=== PATIENT | female | born 1985 | race Caucasian/White ===

== ENCOUNTER → 2017-04-20 13:30 | Outpatient (CLI) | payer OTHER, SELFPAY ==
--- NOTE | 2017-04-20 08:36 | HPBI_ITS ---
MAMMOGRAPHY - BILATERAL SCREENING REASON FOR EXAM: Female, 32 years old. Routine annual screening examination. PERTINENT HISTORY: Grandmother with breast cancer. Aunt with breast cancer. TECHNIQUE: Digital bilateral breast fantasma (3D mammographic acquisition) in the CC and MLO projections. 2-D mediolateral oblique (MLO) and craniocaudad (CC) views of both breasts were obtained. CAD: Full Field Digital Mammography with Computer Added Detection was performed. COMPARISON: Comparison is made with prior outside examination dated February 24, 2016 and prior MRI examination dated August 05, 2016. FINDINGS: Breast Composition: The breasts are heterogeneously dense, which may obscure small masses. There are no dominant masses or suspicious calcifications. No other significant abnormalities are identified. There has been no significant change since the prior study. HPBI/SCREENING MAMM (CAD), BILAT IMPRESSION: Stable bilateral screening mammogram. Yearly follow-up mammogram recommended. (A) ASSESSMENT CATEGORY: BIRADS Category 1: Negative. A letter regarding these results will be sent to the patient by the facility within 30 days. Approximately 10% of breast cancers are not detected by mammography. A normal mammogram should not delay biopsy of a clinically suspicious abnormality. [id number] Electronically Signed: Jase Gleason MD at 10:29 EST Tel [phone], Service support ,
== END ==
PROVIDERS: Family Provider Family Medicine; PCP Family Medicine; Visit Provider Obstetrics & Gynecology
DX: Z12.31 Encounter for screening mammogram for malignant neoplasm of breast (principal)
CPT/HCPCS: 77063; 77067

== ENCOUNTER → 2017-07-21 18:16 | Outpatient (CLI) | payer OTHER, SELFPAY ==
[2017-07-25 15:42] LABS: HPV Reflexed? NOT INDICATED
== END ==
PROVIDERS: Visit Provider Obstetrics & Gynecology
DX: Z12.4 Encounter for screening for malignant neoplasm of cervix (principal)
CPT/HCPCS: 88175; G0145

== ENCOUNTER → 2018-05-17 12:40 | Outpatient (CLI) | payer OTHER, SELFPAY ==
--- NOTE | 2018-05-17 13:11 | BI_ITS ---
MAMMOGRAPHY - BILATERAL SCREENING REASON FOR EXAM: Female, 33 years old. Routine annual screening examination. PERTINENT HISTORY: Grandmother with breast cancer. Aunt with breast cancer. TECHNIQUE: Digital bilateral breast fantasma (3D mammographic acquisition) in the CC and MLO projections. 2-D mediolateral oblique (MLO) and craniocaudad (CC) views of both breasts were obtained. CAD: Full Field Digital Mammography with Computer Added Detection was performed. COMPARISON: Comparison is made with prior study dated October 18, 2017. FINDINGS: Breast Composition: The breasts are heterogeneously dense, which may obscure small masses. There are no dominant masses or suspicious calcifications. No other significant abnormalities are identified. There has been no significant change since the prior study. BI/SCREENING MAMM (CAD), BILAT IMPRESSION: Stable bilateral screening mammogram. Yearly follow-up mammogram recommended. (A) ASSESSMENT CATEGORY: BIRADS Category 1: Negative. A letter regarding these results will be sent to the patient by the facility within 30 days. Approximately 10% of breast cancers are not detected by mammography. A normal mammogram should not delay biopsy of a clinically suspicious abnormality. [id number] Electronically Signed: Jase Gleason MD at 14:54 EST , Service support ,
== END ==
PROVIDERS: Family Provider Internal Medicine; PCP Internal Medicine; Referring Provider Obstetrics & Gynecology; Visit Provider Obstetrics & Gynecology
DX: Z12.31 Encounter for screening mammogram for malignant neoplasm of breast (principal)
CPT/HCPCS: 77063; 77067

== ENCOUNTER 2018-10-18 22:02 | Emergency (ER) | payer OTHER, SELFPAY ==
[2018-10-18 09:37] VITALS: BMI 23.4
[2018-10-18 22:02] VITALS: BP 147/90; PULSE 64; RESP 18; TEMP 36.7; O2SAT 100; BMI 23.6
[2018-10-18 22:27] LABS: Mucous, Urine 0 SEEN /hpf (<or=2+); Red Blood Cells-Urine 0 SEEN /hpf (0-5); White Blood Cells 0 SEEN /hpf (0-5)
[2018-10-18 22:31] LABS: Color, Urine Yellow (Yellow); Glucose, Dipstick Normal (Normal); Ketone-Dipstick 15 mg/dl (Negative); Leukocyte Esterase-Dipstick Negative /ul (Negative); Nitrite-Dipstick Negative (Negative); Occult Blood-Urine Negative /ul (Negative); Protein-Dipstick Negative (Negative); Urine Bilirubin Dipstick Negative (Negative); Urine Clarity Clear (Clear); Urine Urobilinogen Normal (Normal)
[2018-10-18 22:48] LABS: Absolute Lymphocyte Count 2.39 X10^3/uL (0.83-4.51); Absolute Neutrophil Count 2.7 X10^3/uL (2.0-7.7); Basophil# 0.05 X10^3/uL; Basophil% 0.8 % (0-1); Eosinophil# 0.05 X10^3/uL; Eosinophils% 0.8 % (0-5); Hematocrit 43.4 % (37-47); Lymphocyte # 2.39 X10^3/ul (4.0); Lymphocyte % 39.8 % (19-41); Mean Corp Hgb Conc 34.6 g/dL (32-36); Mean Corpuscular Hgb 30.7 pg (27.0-32.0); Mean Corpuscular Volume 88.9 fL (81-99); Mean Platelet Vol. 10.1 fl (6.2-12.0); Monocyte# 0.76 X10^3/uL; Monocyte% 12.7 % (0-10); NRBC Flagged by Analyzer 0 % (0-5); Neutrophil # 2.73 X10^3/uL (2.7-7.7); Neutrophil % 45.6 % (47-70); Platelet Count 191 K/mm3 (150-450); RBC Distribution Width CV 11.4 % (11.6-14.6); RBC Distribution Width SD 36.3 fl (35.1-43.9); Red Blood Count 4.88 M/mm3 (4.2-5.4)
[2018-10-18 22:52] LABS: Bacteria RARE /hpf (None Seen); Squamous Epithelial Cells - UA 0-5 SEEN /hpf (5-10)
[2018-10-18 22:59] LABS: Anion Gap 3 (5-15); BUN 10 mg/dL (7-18); BUN/Creat Ratio 11.3 RATIO (10-20); Calcium,Total 8.7 mg/dL (8.5-10.1); Chloride 105 mmol/L (98-107); Creatinine, Serum 0.88 mg/dL (0.55-1.02); EST Glomerular Filtration Rate 77 mL/min (>60); Est Glom Filt Rate - Afr Amer 93 mL/min (>60); Estimated Creatinine Clearance 67.33 ml/min; Glucose 165 mg/dL (74-106); Potassium 3.2 mmol/L (3.5-5.1); Sodium Level 137 mmol/L (136-145)
--- NOTE | 2018-10-18 23:03 | ED.DCSUM_ITS ---
- ER Visit Summary Date of Service: 10/18/18 Chief Complaint: Abdominal pain History of Present Illness: The patient is a 33 F who presents with abdominal pain. This began around noon about 11 hours before the time of my evaluation. She describes it as sharp and burning. Its diffuse although is worse in the upper abdomen. She also complains of nausea without vomiting. No diarrhea. She had a flulike illness 4 days ago. She had fever of 102 which is not returned. She also was complaining of muscle aches and joint aches although those symptoms have improved. She began to develop some nausea this morning and was seen at an urgent care. However she was not having any significant pain at that time. She has a history of prior C-sections but denies any other abdominal surgery. She denies medical history. Physical Examination: Afebrile blood pressure 147/90 vitals otherwise normal No distress Moist mucous membranes Heart regular rate and rhythm Lungs are clear Abdomen soft nondistended she has some diffuse abdominal tenderness which is greatest in the epigastrium no guarding no rebound Alert Test Results: Labs notable for potassium 3.2 and ketones of 15 in the urine. Hepatic function, lipase normal. negative. Emergency Department Course and Treatment: Patient was treated with Toradol Zofran and IV fluids. She reports really no change in symptoms. She was also given a GI cocktail. She is afebrile normal heart rate no leukocytosis or laboratory abnormalities. She is tender in the epigastrium but does not have a surgical abdomen. At this time I do not see an indication for imaging. I suspect this is related to gastritis. We will start her on Prilosec. She was instructed on specific signs and symptoms to monitor for and conditions which should prompt return here to the emergency department for reevaluation. Patient agreeable to this plan. All questions answered bedside. Patient discharged. Treatment Plan: [] Disposition: Discharge Impression: Abdominal pain This note was generated with [employer] dictation software. It may contain incorrect words, spelling, and punctuation that were not noted in review of the chart prior to signing ED Disposition - Plan for ED Patient: Referrals: Daly Webb MD [Primary Care Provider] -
[2018-10-18 23:09] LABS: Internal QC Validated? YES +Cl - CLEAR BKGD; Pregnancy, Serum, hCG Quali. NEGATIVE Negative
[2018-10-18] MEDS: Ketorolac 30 MG/ML Syringe IV (23:23)
[2018-10-18] MEDS: Ondansetron 4 MG/2 ML Vial IV (23:23)
[2018-10-18 23:31] LABS: Lipase 111 U/L (73-393)
[2018-10-18 23:32] LABS: AST(SGOT) 15 U/L (15-37); Alanine Aminotransfer ALT/SGPT 22 U/L (13-56); Albumin, Serum 3.7 g/dL (3.2-5.0); Alkaline Phosphatase 68 U/L (45-117); Bilirubin, Direct 0.07 mg/dL (0.00-0.30); Globulin 2.9 g/dL (2.2-4.2); Protein, Total 6.6 g/dL (6.4-8.2)
[2018-10-18] MEDS: 0.9% Normal Saline 1,000 ML 999 ML IV (23:32)
[2018-10-18 23:33] VITALS: BP 147/92; PULSE 59; RESP 16; O2SAT 100
[2018-10-19] MEDS: Mag Hydrox/Al Hydrox/Simeth 30 ML UDC PO (00:12)
--- NOTE | 2018-10-19 00:18 | ED.DEP ---
ED Disposition - Plan for ED Patient: Instructions: ABDOMINAL PAIN, Unknown Cause, (Female) Prescriptions: Omeprazole [Prilosec] 20 mg PO DAILY #30 cap Prescription Printed Referrals: Daly Webb MD [Primary Care Provider] -
[2018-10-19 00:35] VITALS: BP 140/86; PULSE 64; RESP 15; O2SAT 98
== END 2018-10-19 00:40 | disposition home or self-care (01) ==
PROVIDERS: Emergency Provider Emergency Medicine; Family Provider Internal Medicine; PCP Internal Medicine
DX: R10.84 Generalized abdominal pain (principal)
CPT/HCPCS: 80048; 80076; 81001; 83690; 84703; 85025; 96361; 96374; 96375; 99284; J7030; A4216; J2405

== ENCOUNTER 2018-10-19 23:48 | Emergency (ER) | payer OTHER, SELFPAY ==
[2018-10-19 13:24] VITALS: BMI 23.6
[2018-10-19 23:48] VITALS: BP 160/88; PULSE 63; RESP 16; TEMP 36.2; O2SAT 98; BMI 22.6
--- NOTE | 2018-10-19 23:58 | CT_ITS ---
STUDY: CT ABDOMEN AND PELVIS WITH CONTRAST REASON FOR EXAM: Female, 33 years old. Abdomen pain. RADIATION DOSAGE (If Supplied By Facility): CTDIvol = ( 8.44 ) mGy, DLP = ( 345.98 ) mGycm TECHNIQUE: Transaxial images were obtained from the dome of the diaphragm to the symphysis pubis without oral contrast. 75 IV/Oral Isovue 300 was administered. Sagittal and coronal images were reconstructed. Individualized dose optimization techniques were used for this CT. COMPARISON: None. FINDINGS: The visualized lung bases are unremarkable. The visualized portions of the heart are within normal limits. Normal liver. Normal gallbladder and extrahepatic biliary system. Normal spleen. Normal pancreas. Normal bilateral adrenal glands. Normal right kidney. Normal left kidney. Normal visualized stomach. Normal small intestine. Normal colon. The appendix is visualized and appears normal. Normal abdominal aorta. Normal inferior vena cava. Normal retroperitoneum. Normal urinary bladder. Normal visualized uterus and left ovary. The right ovary is not identified. There is small amount of free fluid in the pelvic cul-de-sac probably physiologic. Normal abdominal wall. Normal osseous structures. CT/Abdomen/Pelvis WITH Contrast IMPRESSION: Normal enhanced CT of the abdomen and pelvis. Electronically Signed: Alfred Loya, at 3:07 EDT Tel , Service support ,
--- NOTE | 2018-10-19 23:59 | ED.VIS.GEN ---
History of Present Illness Chief Complaint: Abd Pain Informant: Patient Onset: Yesterday Timing: Waxes and wanes Current Severity: Moderate Maximum Severity: Moderate Narrative: Patient was seen in the now clinic yesterday morning with nausea. She was seen in the emergency room last night after she had also developed diffuse abdominal pain, worse in the upper abdomen. Lab work was unremarkable. She was started on Prilosec. She was seen by her PCP today and also given sucralfate. Patient states that her pain was pretty good all day today, but returned at 10 PM this evening. She has not eaten anything since noon. She has had no fever. Past Medical History - Allergies and Home Meds Allergies/Adverse Reactions: Allergies chlorhexidine Allergy (Verified 10/19/18 23:48) Uri Primary Care Physician: Daly Webb MD [Primary Care Provider] - Prior records reviewed: Yes Past Medical History: - - Reviewed Surgical History: - - , tubal ligation Lives: With Family Smoking Status: Former smoker Review of Systems All systems negative except as indicated General: Denies: Chills, Fever Eyes: Denies: Visual changes - left, Visual changes - right Cardiovascular: Denies: Chest pain, Palpitations, Heart racing Respiratory: Denies: Dyspnea, Cough Gastrointestinal: Reports: Abdominal pain, Nausea. Denies: Vomiting, Diarrhea, Constipation Genitourinary: Denies: Dysuria, Hematuria Musculoskeletal: Denies: Back pain Skin: Denies: Rash Neurological: Denies: Headache, Weakness Endocrine: Denies: Polyuria, Polydipsia Allergy: Denies: Uticaria Physical Exam Vital Signs/Narrative: Vital Signs Temp Pulse Resp BP Pulse Ox 10/19/18 23:48 97.1 F L 63 16 160/88 H 98 Inital Vital Signs reviewed: Yes General: Well nourished, Well developed ENT: Moist mucous membranes Cardiovascular: Regular rate, Regular rhythm Respiratory: No distress, CTA bilaterally Abdomen: Soft, Tender - Mild diffuse tenderness palpation, worse in the epigastrium. No guarding or rebound., Hypoactive bowel sounds. Negative for: Guarding, Rebound tenderness Back: Nontender. Negative for: CVA tenderness Extremities: Nontender, No edema Skin: Normal color, No rash Neurological: Alert, Oriented x3 Psychological: Normal affect Diagnostic/Tx/Re-eval Impressions Abdomen/Pelvis CT 10/19/18 23:58 IMPRESSION: Normal enhanced CT of the abdomen and pelvis. Electronically Signed: Alfred Loya, at 3:07 EDT Tel , Service support , 10/19/18 23:58 Abdomen/Pelvis WITH Contrast [CT] Stat Laboratory Results 10/20/18 10/20/18 00:03 00:03 WBC 5.8 RBC 4.83 Hgb 14.6 Hct 42.4 MCV 87.8 MCH 30.2 MCHC 34.4 RDW Std Deviation 36.3 RDW Coeff of [place] 11.3 L Plt Count 194 MPV 10.3 Immature Gran % (Auto) 0.300 Neut % (Auto) 51.6 Lymph % (Auto) 34.9 [place] % (Auto) 11.4 H Eos % (Auto) 0.9 Baso % (Auto) 0.9 Absolute Neuts (auto) 3.0 Absolute Lymphs (auto) 2.03 Absolute Nucleated RBC 0.00 Nucleated RBC % 0 Sodium 135 L Potassium 3.6 Chloride 104 Carbon Dioxide 26.0 Anion Gap 5 BUN 6 L Creatinine 0.78 Estim Creat Clear Calc 75.96 Est GFR (MDRD) Af Amer 108 Est GFR (MDRD) Non-Af 90 BUN/Creatinine Ratio 7.7 L Glucose 120 H Calcium 8.5 Total Bilirubin 0.60 Direct Bilirubin 0.11 AST 17 ALT 27 Alkaline Phosphatase 57 Total Protein 6.8 Albumin 3.8 Globulin 3.0 Lipase 86 - Medical Decision Making Patient received morphine, Zofran, and IV fluids. This was her fourth visit to healthcare professional in 2 days. She expressed concern about not having imaging performed at this point. CT scan was obtained and is unremarkable. Patient has been resting comfortably since she was medicated on arrival. Patient's mother states she had another child that had some spasms in the lower esophagus and wonders if that may be causing some of the patient's pain. I will write her prescription for Bentyl that she can try. I also recommended frequent small snacks so that the acid did not build up in her stomach. ED Disposition - Plan for ED Patient: Disposition: Home or Assisted Living Diagnosis: Epigastric pain Instructions: EPIGASTRIC PAIN (Uncertain cause), GASTRITIS vs. ULCER Prescriptions: Dicyclomine HCl [Bentyl] 20 mg PO TIDAC PRN #20 capsule PRN Reason: Pain Referrals: Daly Webb MD [Primary Care Provider] -
[2018-10-20] MEDS: Ondansetron 4 MG/2 ML Vial IV (00:07)
[2018-10-20] MEDS: 0.9% Normal Saline 1,000 ML 150 ML IV (00:07)
[2018-10-20] MEDS: Morphine 4 MG/ML Syringe IV (00:08)
[2018-10-20 00:15] LABS: Absolute Lymphocyte Count 2.03 X10^3/uL (0.83-4.51); Basophil# 0.05 X10^3/uL; Basophil% 0.9 % (0-1); Eosinophil# 0.05 X10^3/uL; Eosinophils% 0.9 % (0-5); Hematocrit 42.4 % (37-47); Hemoglobin 14.6 g/dL (12.0-15.0); Lymphocyte # 2.03 X10^3/ul (4.0); Lymphocyte % 34.9 % (19-41); Mean Corp Hgb Conc 34.4 g/dL (32-36); Mean Corpuscular Hgb 30.2 pg (27.0-32.0); Mean Corpuscular Volume 87.8 fL (81-99); Mean Platelet Vol. 10.3 fl (6.2-12.0); Monocyte# 0.66 X10^3/uL; Monocyte% 11.4 % (0-10); NRBC Flagged by Analyzer 0 % (0-5); Neutrophil % 51.6 % (47-70); Platelet Count 194 K/mm3 (150-450); RBC Distribution Width CV 11.3 % (11.6-14.6); RBC Distribution Width SD 36.3 fl (35.1-43.9); Red Blood Count 4.83 M/mm3 (4.2-5.4); White Blood Count 5.8 K/mm3 (4.4-11.0)
[2018-10-20 00:27] LABS: AST(SGOT) 17 U/L (15-37); Alanine Aminotransfer ALT/SGPT 27 U/L (13-56); Albumin, Serum 3.8 g/dL (3.2-5.0); Alkaline Phosphatase 57 U/L (45-117); Anion Gap 5 (5-15); BUN 6 mg/dL (7-18); BUN/Creat Ratio 7.7 RATIO (10-20); Bilirubin, Direct 0.11 mg/dL (0.00-0.30); Calcium,Total 8.5 mg/dL (8.5-10.1); Chloride 104 mmol/L (98-107); Creatinine, Serum 0.78 mg/dL (0.55-1.02); EST Glomerular Filtration Rate 90 mL/min (>60); Est Glom Filt Rate - Afr Amer 108 mL/min (>60); Estimated Creatinine Clearance 75.96 ml/min; Glucose 120 mg/dL (74-106); Lipase 86 U/L (73-393); Potassium 3.6 mmol/L (3.5-5.1); Protein, Total 6.8 g/dL (6.4-8.2); Sodium Level 135 mmol/L (136-145)
[2018-10-20 03:23] VITALS: BP 135/92; PULSE 60; RESP 14; O2SAT 99
== END 2018-10-20 03:23 | disposition home or self-care (01) ==
PROVIDERS: Emergency Provider Emergency Medicine; Family Provider Internal Medicine; PCP Internal Medicine
DX: R10.13 Epigastric pain (principal); Z87.891 Personal history of nicotine dependence
CPT/HCPCS: 74177; 80048; 80076; 83690; 85025; 96361; 96374; 96375; 99283; J7030; Q9967; A4216; J2405

== ENCOUNTER → 2018-12-30 | Outpatient (CLI) | payer OTHER, SELFPAY ==
[2018-10-26 15:38] VITALS: BMI 22.6
[2019-01-03 16:06] LABS: HPV Reflexed? NOT INDICATED
== END | disposition home or self-care (01) ==
LOC: LABSPEC 13:23
PROVIDERS: Visit Provider Obstetrics & Gynecology
DX: Z12.4 Encounter for screening for malignant neoplasm of cervix (principal)
CPT/HCPCS: 88175; G0145

== ENCOUNTER → 2019-05-26 | Outpatient (CLI) | payer OTHER, SELFPAY ==
[2019-05-26 10:54] VITALS: BMI 22.6
[2019-05-26 13:07] LABS: Absolute Neutrophil Count 3.6 X10^3/uL (2.0-7.7); Basophil# 0.06 X10^3/uL; Eosinophil# 0.06 X10^3/uL; Hematocrit 47.6 % (37-47); Hemoglobin 15.7 g/dL (12.0-15.0); Lymphocyte % 32.5 % (19-41); Mean Corpuscular Hgb 28.8 pg (27.0-32.0); Mean Corpuscular Volume 87.3 fL (81-99); Mean Platelet Vol. 10.6 fl (6.2-12.0); Monocyte# 0.45 X10^3/uL; Monocyte% 7.3 % (0-10); NRBC Flagged by Analyzer 0 % (0-5); Neutrophil # 3.59 X10^3/uL (2.7-7.7); Neutrophil % 58.2 % (47-70); Platelet Count 228 K/mm3 (150-450); RBC Distribution Width CV 11.5 % (11.6-14.6); Red Blood Count 5.45 M/mm3 (4.2-5.4); White Blood Count 6.2 K/mm3 (4.4-11.0)
[2019-05-26 13:49] LABS: ALB/GLOB Ratio 1.2 RATIO (0.9-2.4); AST(SGOT) 19 U/L (15-37); Alanine Aminotransfer ALT/SGPT 29 U/L (13-56); Albumin, Serum 4.3 g/dL (3.2-5.0); Alkaline Phosphatase 77 U/L (45-117); Anion Gap 7 (5-15); BUN 17 mg/dL (7-18); BUN/Creat Ratio 20.9 RATIO (10-20); Calcium,Total 9.2 mg/dL (8.5-10.1); Chloride 105 mmol/L (98-107); Creatinine, Serum 0.82 mg/dL (0.55-1.02); EST Glomerular Filtration Rate 84 mL/min (>60); Est Glom Filt Rate - Afr Amer 102 mL/min (>60); Globulin 3.6 g/dL (2.2-4.2); Glucose 82 mg/dL (74-106); Potassium 4.5 mmol/L (3.5-5.1); Protein, Total 7.9 g/dL (6.4-8.2); Sodium Level 138 mmol/L (136-145); T4 Free Direct 1.22 ng/dL (0.76-1.46); Thyroid Stim Hormone (TSH) 2.08 uIU/mL (0.358-3.74)
[2019-05-30 11:18] LABS: Vitamin D,25 Hydroxy 24.7 ng/mL
== END | disposition home or self-care (01) ==
LOC: BIMLAB 11:23
PROVIDERS: PCP Internal Medicine; Referring Provider Internal Medicine; Visit Provider Internal Medicine
DX: E55.9 Vitamin D deficiency, unspecified (principal); R53.81 Other malaise; R53.83 Other fatigue; Z13.29 Encounter for screening for other suspected endocrine disorder
CPT/HCPCS: 36415; 80053; 82306; 84439; 84443; 85025

== ENCOUNTER → 2019-06-08 | Outpatient (CLI) | payer OTHER, SELFPAY ==
[2018-10-26 15:38] VITALS: BMI 22.6
[2019-05-26 10:54] VITALS: BMI 22.6
--- NOTE | 2019-06-08 13:00 | BI_ITS ---
MAMMOGRAPHY - BILATERAL SCREENING REASON FOR EXAM: Female, 34 years old. Routine annual screening examination. PERTINENT HISTORY: Grandmother with breast cancer. Aunt with breast cancer. TECHNIQUE: Digital bilateral breast mp (3D mammographic acquisition) in the CC and MLO projections. 2-D mediolateral oblique (MLO) and craniocaudad (CC) views of both breasts were obtained. CAD: Full Field Digital Mammography with Computer Added Detection was performed. COMPARISON: Comparison is made with prior examination of May 17, 2018 and April 20, 2017. FINDINGS: Breast Composition: The breasts are heterogeneously dense, which may obscure small masses. There are no dominant masses or suspicious calcifications. No other significant abnormalities are identified. There has been no significant change since the prior study. BI/SCREEN MAMM (CAD) W/MP BILAT IMPRESSION: Stable bilateral screening mammogram. Yearly follow-up mammogram recommended. (A) ASSESSMENT CATEGORY: BIRADS Category 1: Negative. A letter regarding these results will be sent to the patient by the facility within 30 days. Approximately 10% of breast cancers are not detected by mammography. A normal mammogram should not delay biopsy of a clinically suspicious abnormality. [id number] Electronically Signed: Jase Gleason, at 14:02 EST , Service support ,
== END | disposition home or self-care (01) ==
LOC: OPBI 13:48
PROVIDERS: PCP Internal Medicine; Referring Provider Obstetrics & Gynecology; Visit Provider Obstetrics & Gynecology
DX: Z12.31 Encounter for screening mammogram for malignant neoplasm of breast (principal)
CPT/HCPCS: 77063; 77067

== ENCOUNTER → 2019-06-09 | Outpatient (CLI) | payer OTHER, SELFPAY ==
[2019-05-26 10:54] VITALS: BMI 22.6
--- NOTE | 2019-06-09 13:25 | ECHOD_ITS ---
Reason For Study: Family Hx of AVM Procedure This was a 2D Doppler, Color Flow transthoracic echocardiogram. Exam performed in department. Left Ventricle Normal LV size. Left ventricular systolic function is normal. The estimated ejection fraction is 60 %. Normal diastology for age. No regional wall motion abnormalities noted. Right Ventricle Normal RV size. Normal systolic function. Atria Normal left atrium. Normal right atrium. Bubble contrast study negative for right to left interatrial shunt. Mitral Valve Normal mitral valve. Mild (1+) eccentric mitral valve insufficiency. Tricuspid Valve Normal tricuspid valve. Aortic Valve Normal aortic valve. Pulmonic Valve Normal pulmonic valve. Great Vessels Normal aortic root. The pulmonary artery is normal size. Normal inferior vena cava. Pericardium/Pleural No pericardial effusion. Medication Performed a rapid injection of agitated mix of 9 cc saline and 1cc air to assess for atrial septal defect. MMode/2D Measurements & Calculations LVIDd: 4.1 cm IVSd: 0.73 cm Ao root diam: 2.0 cm LVIDs: 2.7 cm LVPWd: 0.87 cm RVDd: 3.0 cm FS: 35.1 % LAV(MOD-bp): 28.6 ml LVAd ap4: 22.1 cm2 SV(MOD-sp4): 36.2 ml LAV(MOD-bp) Indexed: 18.5 ml/m2 EDV(MOD-sp4): 58.3 ml LAV(MOD-sp2): 28.6 ml EDV(sp4-el): 60.2 ml LAV(MOD-sp4): 25.1 ml LVAs ap4: 12.1 cm2 ESV(MOD-sp4): 22.1 ml ESV(sp4-el): 22.1 ml EF(MOD-sp4): 62.1 % EF(sp4-el): 63.3 % SV(sp4-el): 38.1 ml LA A4 area: 12.2 cm2 LA dimension(2D): 3.2 cm RA A4 area: 10.5 cm2 Doppler Measurements & Calculations MV E max brandon: 127.3 cm/sec Lat Peak E' Brandon: 14.7 cm/sec Med Peak E' Brandon: 12.5 cm/sec MV A max brandon: 60.9 cm/sec E/E' lat: 8.6 E/E' med: 10.2 MV E/A: 2.1 Ao V2 max: 135.9 cm/sec LV V1 max: 110.5 cm/sec PA V2 max: 72.5 cm/sec Ao max P.4 mmHg LV V1 max P.9 mmHg Ao V2 mean: 96.2 cm/sec Ao mean P.1 mmHg Ao V2 VTI: 30.4 cm PI end-d brandon: 86.3 cm/sec TR max brandon: 204.2 cm/sec TR max P.7 mmHg Interpretation Summary Normal LV size. Left ventricular systolic function is normal. The estimated ejection fraction is 60 %. Normal diastology for age. Bubble contrast study negative for right to left interatrial shunt. Ordering Physician: Daly Webb Referring Physician: Daly Webb Performed By: Sana Perez, LIZ, RVT
== END | disposition home or self-care (01) ==
LOC: CVS 13:25
PROVIDERS: PCP Internal Medicine; Referring Provider Internal Medicine; Visit Provider Internal Medicine
DX: Z87.74 Personal history of (corrected) congenital malformations of heart and circulatory system (principal)
CPT/HCPCS: 93306; A4216

== ENCOUNTER → 2019-11-01 | Outpatient (CLI) | payer OTHER, SELFPAY ==
[2019-11-01 09:01] VITALS: BMI 22.6
[2019-11-01 12:50] LABS: Vitamin D,25 Hydroxy 40.6 ng/mL
[2019-11-01 13:01] LABS: Thyroid Stim Hormone (TSH) 1.77 uIU/mL (0.358-3.74)
== END | disposition home or self-care (01) ==
PROVIDERS: PCP Internal Medicine; Referring Provider Nurse Practitioner Family; Visit Provider Nurse Practitioner Family
DX: E55.9 Vitamin D deficiency, unspecified (principal); R63.5 Abnormal weight gain; Z13.29 Encounter for screening for other suspected endocrine disorder
CPT/HCPCS: 36415; 82306; 84443

== ENCOUNTER → 2020-06-21 14:52 | Outpatient (CLI) | payer OTHER, SELFPAY ==
[2020-02-20 08:07] VITALS: BMI 22.3
--- NOTE | 2020-06-21 14:30 | EMB_PTH ---
PATIENT: ESPERANZA LU LOC: [facility] U#:[id number] AGE/SX: 39/F ROOM: RE06/21/[address]: Dr. Zac Arana MD : 1985 BED: DIS: SPEC #: [id number] RECD: 06/21/20 16:48 STATUS: ALFRED REKenia #: [id number] OLIVER: 06/21/20 14:[address]: Zac Arana DEPT: SURGICAL PATHOLOGY RECD BY: Lorraine Prado ENTERED: 06/24/20 07:53 SP TYPE: ENDOM BX/C AILYN DR: Dr. Daly Webb MD Tissues: Endometrium, NOS Procedures: Surgery Specimen Level IV HEADER OPERATION: Endometrial biopsy PRE-OP DIAGNOSIS: N92.1 TISSUE SUBMITTED: Endometrial biopsy MICROSCOPIC DIAGNOSIS Endometrial biopsy: Mildly disordered proliferative endometrium. SJ:joana 06/25/2020 MICROSCOPIC DESCRIPTION Slides are reviewed. GROSS DESCRIPTION Received in fixative is one container labeled with the patient's name and designated endometrial biopsy. The specimen consists of multiple irregular and elongated fragments of light to dark holley soft tissue that in aggregate measure 2.5 x 2 x 0.2 cm. The specimen is totally submitted in one cassette. / AM:joana 06/24/20 TC:5 CPT: 39149
[2020-06-26 16:50] LABS: HPV Reflexed? NOT INDICATED
== END ==
PROVIDERS: PCP Internal Medicine; Visit Provider Obstetrics & Gynecology
DX: N92.1 Excessive and frequent menstruation with irregular cycle (principal)
CPT/HCPCS: 88175; 88305; G0145

== ENCOUNTER 2020-07-29 09:54 | Day surgery (SDC) | payer OTHER, SELFPAY ==
[2020-02-20 08:07] VITALS: BMI 22.3
[2020-07-23 10:16] LABS: Hematocrit 44.1 % (37-47); Hemoglobin 13.9 g/dL (12.0-15.0); Mean Corp Hgb Conc 31.5 g/dL (32-36); Mean Corpuscular Hgb 28.3 pg (27.0-32.0); Mean Corpuscular Volume 89.6 fL (81-99); Mean Platelet Vol. 10.8 fl (6.2-12.0); Platelet Count 284 K/mm3 (150-450); RBC Distribution Width CV 11.6 % (11.6-14.6); RBC Distribution Width SD 37.9 fl (35.1-43.9); Red Blood Count 4.92 M/mm3 (4.2-5.4); White Blood Count 11.6 K/mm3 (4.4-11.0)
[2020-07-23 10:27] LABS: International Normalized Ratio 0.9; Prothrombin Time (Protime)PT. 11.8 SECONDS (11.7-14.9)
[2020-07-23 10:28] LABS: Partial Thromboplast Time 21.1 Seconds (24.1-36.2)
--- NOTE | 2020-07-28 21:19 | HP.PCM_ITS ---
History and Physical Date of Admission: 07/29/20 Surgical History and Physical Breana Bazan, a 35 year old female 3 0 0 0 3, presents for HTA, Hysteroscopy and D and C on July 29, 2020 at 10:30. -- Menorrhagia -- Heavy menses which began 1 year ago. Breana claims it started gradually It is located in the vagina. Severity is severe and worsening; Associated signs and symptoms are unable to take hormones due to strong family hx of breast cancer. MEDICATIONS HISTORY: ALLERGIES: NKDA Infections - Chicken pox Illnesses - no serious past illnesses Accidents - no injuries of consequence Hospitalizations - Childbirth and see surgery Grandmother had fallopian tube ca, Breana broken riugh humerus 1989; Review of Systems: GENERAL - Denies fever, or chills SKIN - Denies skin changes EYES - Denies visual changes EARS - Denies difficulty hearing NOSE - Denies nasal congestion or bleeding MOUTH - Denies sore throat or difficulty swallowing NECK - Denies pain or swelling RESPIRATORY - Denies shortness of breath or wheezing CARDIOVASCULAR - Denies palpitations or chest pain GASTROINTESTINAL - Denies nausea, vomiting, diarrhea, constipation GENITOURINARY - Denies dysuria, frequency of urination, incontinence of urine MUSCULOSKELETAL - Denies joint or muscle pain NEUROLOGICAL - Denies localized numbness or weakness PSYCHIATRIC - Denies depression or anxiety ENDOCRINE - Denies heat or cold intolerance, weight loss or gain HEMATO-IMMUNOLOGIC - Denies excesive bleeding with cuts SOCIAL HISTORY: Alcohol Use - denies drinking Smoking - denies smoking Diet - balanced Diet Lifestyle - moderate stress lifestyle and lives with FOB Exercise - very active Seat Belt Use - always Employer - [employer] Job Description - [employer] Illicit Drug Use - denies use of street drugs Sexual Activity - [employer]IVE [employer] Residence - owns a home Place of - [place], [place] Hours Worked - PT Spouse-Sig Other Name - Blaise Sosa -FOB Spouse-Sig Other Occupation - Self-Employed Spouse-Sig Other Phone No - [phone] Children Name(s) - Uday Gutierrez 13', sander 14' (JW) Control - Tubal FAMILY HISTORY: Mother: Osteoporosis, Hypertension. Father: Stroke---. Maternal Grandmother: Breast cancer. Paternal Grandmother: Fallopian tube CA. MENSTRUAL HISTORY: LMP Known?- DefiniteAmount/Duration - 10 to 14 days, Regularity - Irregular, Frequency - variable days, LMP - 06/27/20, Age Onset Menarche - 11 PAST PREGNANCIES: Total Pregnancies - 3; Full Term Pregnancies - 3; Premature - 0; Abortions, Induced - 0; Abortions, Spontaneous - 0; Ectopics - 0; Multiple Births - 0; Living Children - 3 SURGICAL HISTORY: 1. wisdom teeth 2. 04/24/2009 P C/S ; Zac Arana M.D. - Distress Cord Entanglement 3. 06/30/2012 repeat ; Zac Arana M.D. 4. 02/28/2014 repeat C section ; Zac Arana M.D. PHYSICAL EXAM BP- 122/68 Sitting, Right arm, regular cuff Weight- 141.77497 lbs Height- 62 inch BMI:25.84 CONSTITUTIONAL - NAD, well nourished, and well developed SKIN - No rash, lesions, or ulcers HEENT - Normocephalic, PERRLA, EOMI NECK - No nodes, no nuchal rigidity and thyroid normal size and texture LYMPH NODES - Palpation of lymph nodes in neck and groins within normal limits LUNGS - CTA x2 without wheezes, crackles or rales CARDIAC - Regular rate and rhythm without rubs, murmurs, or gallops BREAST - No dominant masses, no tenderness, no axillary adenopathy, no nipple discharge, no skin changes ABDOMEN - Without hepatosplenomegaly, distention, masses, rebound, or guarding; normal bowel sounds; no hernias EXTREMITIES - No edema or calf tenderness NEUROLOGICAL - Cranial nerves II-XII grossly intact PSYCHIATRIC - A and O to time, place, person, mood and affect External Genital Vagina - non-tender without lesions Urethra/Urethral Meatus - non-tender Bladder - non-tender Vagina - vaginal frost are pink and moist without loss of rugae and no evidence of atropy Cervix - without cervical motion tenderness and has normal size and features without evident lesions Uterus - multiparous size 6 cm & wt 75-125 g Adnexa - clear without masses or tenderness ASSESSMENT/PLAN: Premenopause Menorrhagia EMBx and pelvic u/s OK. Discussed options and desires proceeding with HTA, H/S, and D and C. Pamphlet given. Discussed RBAs and all questions answered.
[2020-07-29] VITALS (7 sets, daily range): BP systolic 110–143; BP diastolic 76–83; PULSE 56–81; RESP 16; TEMP 36.5–36.9; O2SAT 98–100; BMI 26.6
[2020-07-29] MEDS: Lactated Ringers 1,000 ML 100 ML IV ×2 (10:35→12:27)
[2020-07-29] MEDS: Cefotetan 2 GM in 0.9% NS 100 ML IV (11:00)
--- NOTE | 2020-07-29 11:14 | PCM.OPRPT ---
Report of Operation Date of Procedure: 07/29/20 Pre-Operative Diagnosis: Menorrhagia Post-Operative Diagnosis: Menorrhagia Surgery/Procedure Performed:: Diagnostic Hysteroscopy, Dilation Curettage, Hydrothermal Ablation Description of Surgical Findings:: 10 cm endometrial cavity without polyps or fibroids present. Cervix which prolapsed to within 1 cm the introitus with tenaculum pulldown with mild cystocele. Laparoscopic-assisted vaginal hysterectomy would be feasible if this were needed. Type of Anesthesia:: General - LMA Anesthesiologist: Monica Solomon Specimen's removed: Endometrial curettings Estimated Blood Loss (mL): Normal Fluids Replaced: Crystalloid Description of Procedure: Surgeon: Zac Arana MD, FACOG Indication: This is a 35 year old patient who has been having problems with extremely heavy menses. Conservative measures have not been helpful. Endometrial sampling was benign and pelvic ultrasound showed that ablation may be helpful. Pt has been counseled regarding the risks, benefits and alternatives of this procedure and all questions answered. She understands that only about half of patients will have amenorrhea after this procedure. Procedure: Patient taken to the operating room where after induction of general anesthesia the patient was prepped and draped in the usual sterile fashion. Bladder was drained of urine with a catheter. Anterior cervix grasped and cervix was dilated to about 17 Armenian size. Hysteroscopic hydrothermal ablation (HTA) unit was place in the cervix and the above findings were noted. HTA unit was removed and the uterus was gently curretted removing all contents. An HTA ablation cycle was then carried out at about 90 degrees Centigrade for 10 minutes with virtually no fluid loss during the procedure. After an appropriate cool down the HTA unit was removed with minimal bleeding noted. The patient tolerated the procedure well and was taken to the recovery room in satisfactory condition. Sponge, instruments and needle counts were all correct. There were no apparent complications of the surgery. Cefotan 2 gms IV was given prior to the procedure. Estimated Blood Loss: Minimal Specimen to Pathology: Endometrial Curettings Grafts/Implants Used: None - Complications None - Admit VTE Documentation VTE Present on Admission: Yes VTE Mechan Device Prophylaxis: SCD's
--- NOTE | 2020-07-29 11:30 | EMB_PTH ---
PATIENT: ESPERANZA LU LOC: [facility] U#:[id number] AGE/SX: 35/F ROOM: RE07/29/[address]: Dr. Zca rAana MD : 1985 BED: DIS: 07/29/2020 SPEC #: [id number] RECD: 07/29/20 12:57 STATUS: ALFRED REQ #: [id number] OLIVER: 07/29/20 11:[address]: Zac Arana DEPT: SURGICAL PATHOLOGY RECD BY: Lorraine Prado ENTERED: 07/30/20 08:35 SP TYPE: ENDOM BX/C OTHR DR: MD Dr. Daly Clement MD Tissues: Endometrium, NOS Procedures: Surgery Specimen Level IV HEADER OPERATION: Hysteroscopy, D & C hydroablation PRE-OP DIAGNOSIS: Premenopause menorrhagia TISSUE SUBMITTED: Endometrial curettings MICROSCOPIC DIAGNOSIS Endometrial curettings: Secretory endometrium. SJ:joana 07/31/2020 COMMENT Please make reference to previous specimen ([id number]) endometrial biopsy with diagnosis of ?mildly disordered proliferative endometrium.? MICROSCOPIC DESCRIPTION Slides are reviewed. GROSS DESCRIPTION Received in fixative is one container labeled with the patient's name and designated endometrial curettings. The specimen consists of multiple fragments of hemorrhagic soft tissue that in aggregate measure 3 x 2.5 x 0.2 cm. The specimen is totally submitted in one cassette. / BOLIVAR:joana 07/30/2020 TC:4 CPT: 72479
--- NOTE | 2020-07-29 11:44 | PCM.DC.D&C ---
Discharge Diet: No Restrictions Discharge Activity: Return to Normal Activity, May Shower, May Take a Tub Bath May resume sexual activity in: 3 weeks Call your doctor if you observe: Fever of 101 or Higher, Inability to urinate, Inability to have a bowel movement, Using more than one pad per hour Additional Instructions: Nothing in the vagina for 3-4 weeks please. Use Ibuprophen 800 mg orally every 8 hours as needed for pain. Can also add Tylenol 1000 mg every 8 hours if needed for pain. If Ibuprophen and Tylenol are not effective then use the Oxycodone but keep in mind it can cause constipation issues. Drink lots of water. Call if bleeding more than a pad per hour. Activity is encouraged but do not over do it !! Allergies/Adverse Reactions: Allergies chlorhexidine Allergy (Verified 07/19/20 12:10) Hives Medications to take at Discharge Oxycodone [Oxyir] 5 mg PO Q6H PRN PRN 7 Days #5 tab 07/29/20 The following prescriptions were given: Oxycodone [Oxyir] 5 mg PO Q6H PRN PRN 7 Days #5 tab PRN Reason: Pain Score 6-10 Transmission Status: Received by [facility] Primary Care Physician: Daly Webb MD [Primary Care Provider] - Test Results: Test results from this visit will be discussed in further detail at your follow-up appointment, if applicable. Please Follow Up With: Zac Arana MD When: 3-4 weeks
[2020-07-29] MEDS: Acetaminophen 500 MG Tablet 1000 MG PO (13:48)
== END 2020-07-29 14:24 | disposition home or self-care (01) ==
LOC: SDC 09:55 → AC 09:55
PROVIDERS: PCP Internal Medicine; Referring Provider Obstetrics & Gynecology; Visit Provider Obstetrics & Gynecology
PROC: 0U5B8ZZ Destruction of Endometrium, Via Natural or Artificial Opening Endoscopic (ICD-10-PCS; CPT 58563; principal; 2020-07-29 11:15)
DX: N92.0 Excessive and frequent menstruation with regular cycle (principal); Z87.891 Personal history of nicotine dependence; Z20.822 Contact with and (suspected) exposure to COVID-19
CPT/HCPCS: 00952; 58563; 36415; 84443; 85027; 85610; 85730; 86850; 86900; 86901; 87426; 88305; C9803; J7120; J2405

== ENCOUNTER → 2020-09-05 08:35 | Outpatient (CLI) | payer OTHER, SELFPAY ==
[2020-07-29 10:22] VITALS: BMI 26.6
--- NOTE | 2020-09-05 08:37 | BI_ITS ---
MAMMOGRAPHY - BILATERAL SCREENING REASON FOR EXAM: Female, 35 years old. Routine annual screening examination. PERTINENT HISTORY: Grandmother with breast cancer. Aunt with breast cancer. TECHNIQUE: Digital bilateral breast mp (3D mammographic acquisition) in the CC and MLO projections. 2-D mediolateral oblique (MLO) and craniocaudad (CC) views of both breasts were obtained. A compression spot view of the left breast in the craniocaudad view was obtained as well. CAD: Full Field Digital Mammography with Computer Added Detection was performed. COMPARISON: Comparison is made with prior study dated 06/08/2019 and 05/17/2018. FINDINGS: Breast Composition: The breasts are heterogeneously dense, which may obscure small masses. There are no dominant masses or suspicious calcifications. No other significant abnormalities are identified. There has been no significant change since the prior study. BI/SCRN MAMM (CAD)W/MP BILAT IMPRESSION: Stable bilateral screening mammogram. Yearly follow-up mammogram recommended. (A) ASSESSMENT CATEGORY: BIRADS Category 1: Negative. A letter regarding these results will be sent to the patient by the facility within 30 days. Approximately 10% of breast cancers are not detected by mammography. A normal mammogram should not delay biopsy of a clinically suspicious abnormality. [id number] Electronically Signed: Jase Gleason MD at 9:39 EDT , Service support ,
== END ==
PROVIDERS: PCP Internal Medicine; Referring Provider Obstetrics & Gynecology; Visit Provider Obstetrics & Gynecology
DX: Z12.31 Encounter for screening mammogram for malignant neoplasm of breast (principal)
CPT/HCPCS: 77063; 77067

== ENCOUNTER → 2020-09-26 10:19 | Outpatient (CLI) | payer OTHER, SELFPAY ==
[2020-07-29 10:22] VITALS: BMI 26.6
--- NOTE | 2020-09-26 10:33 | MRI_ITS ---
STUDY: BILATERAL BREAST MR WITHOUT AND WITH CONTRAST REASON FOR EXAM: Female, 35 years old. Family history of breast cancer in aunt and grandmother. TECHNIQUE: Multi-sequence multi-echo imaging of both breasts was performed with a dedicated breast coil. T1-weighted and T2-weighted images were performed before the administration of contrast. T1-weighted images were also performed after the administration of 11 mm of Dotarem contrast without complications. COMPARISON: Screening mammogram dated 09/05/2020. FINDINGS: RIGHT BREAST: The breast tissue is scattered fibroglandular densities with minimal background enhancement. There are no abnormal enhancing masses or areas of non-mass enhancement in the right breast. LEFT BREAST: The breast tissue is scattered fibroglandular densities with minimal background enhancement. There are no abnormal enhancing masses or areas of non-mass enhancement in the left breast. There are no enlarged or abnormal lymph nodes. There is no abnormality in the visualized regions of the chest or liver. MRI/Breast Bilateral W/O and W IMPRESSION: No abnormality on the bilateral breast MRI study with contrast. Continued screening mammogram recommended. CATEGORY: BIRADS Category 1: Negative. A letter regarding these results will be sent to the patient by the facility within 30 days. Electronically Signed: Helder Cheatham MD at 13:56 EDT , Service support ,
== END ==
PROVIDERS: PCP Internal Medicine; Referring Provider Obstetrics & Gynecology; Visit Provider Obstetrics & Gynecology
DX: R92.2 Inconclusive mammogram (principal); Z80.3 Family history of malignant neoplasm of breast
CPT/HCPCS: 77049; A9575; A4216; C8908

== ENCOUNTER → 2020-11-05 08:32 | Outpatient (CLI) | payer OTHER, SELFPAY ==
[2020-11-05 08:07] VITALS: BMI 26.6
[2020-11-05 12:54] LABS: T4 Free Direct 1.02 ng/dL (0.76-1.46); Thyroid Stim Hormone (TSH) 2.76 uIU/mL (0.358-3.74)
== END ==
PROVIDERS: PCP Internal Medicine; Referring Provider Nurse Practitioner Family; Visit Provider Nurse Practitioner Family
DX: Z00.00 Encounter for general adult medical examination without abnormal findings (principal)
CPT/HCPCS: 36415; 84439; 84443

== ENCOUNTER → 2021-09-03 | Outpatient (CLI) | payer OTHER, SELFPAY ==
--- NOTE | 2021-09-03 07:38 | BI_ITS ---
MAMMOGRAPHY - BILATERAL DIAGNOSTIC REASON FOR EXAM: Female, 36 years old. Bruising along the inferior medial aspect of the left breast. PERTINENT HISTORY: Grandmother with breast cancer. Aunt with breast cancer. TECHNIQUE: Digital bilateral breast fantasma (3D mammographic acquisition) in the CC and MLO projections. 2-D mediolateral oblique (MLO) and craniocaudad (CC) views of both breasts were obtained. CAD: Full Field Digital Mammography with Computer Added Detection was performed. COMPARISON: Comparison is made with prior mammogram dated 09/05/2020 and 06/08/2019. FINDINGS: Breast Composition: The breasts are heterogeneously dense, which may obscure small masses. There are no dominant masses or suspicious calcifications. No other significant abnormalities are identified. There has been no significant change since the prior study. BI/DIAG MAMM W/CAD, BILAT IMPRESSION: Stable bilateral diagnostic mammogram. One year follow-up recommended. (A) ASSESSMENT CATEGORY: BIRADS Category 1: Negative. A letter regarding these results will be sent to the patient by the facility within 30 days. Approximately 10% of breast cancers are not detected by mammography. A normal mammogram should not delay biopsy of a clinically suspicious abnormality. Electronically Signed: Jase Gleason MD at 9:37 EDT ,
--- NOTE | 2021-09-03 07:38 | US_ITS ---
STUDY: ULTRASOUND BREAST - LEFT REASON FOR EXAM: Female, 36 years old. Left breast bruising. TECHNIQUE: Axial and longitudinal images of the LEFT breast were performed with a high resolution ultrasound transducer. # OF IMAGES: 30 COMPARISON: Comparison is made with prior mammogram done earlier in the day. FINDINGS: LEFT Breast: The inferior half of the left breast was examined with ultrasound. No sonographic abnormality is seen. US/Breast Limited Unilateral IMPRESSION: No sonographic abnormality is seen ASSESSMENT CATEGORY: BIRADS Category 1: Negative. A letter regarding these results will be sent to the patient by the facility within 30 days. Electronically Signed: Jase Gleason MD at 9:38 EDT ,
== END | disposition home or self-care (01) ==
LOC: OPBI 07:35
PROVIDERS: PCP Internal Medicine; Visit Provider Obstetrics & Gynecology
DX: S20.02XA Contusion of left breast, initial encounter (principal); R92.2 Inconclusive mammogram
CPT/HCPCS: 76642; 77062; 77066; G0279

== ENCOUNTER → 2022-03-30 | Outpatient (CLI) | payer OTHER, SELFPAY ==
--- NOTE | 2022-03-30 09:04 | MRI_ITS ---
STUDY: BILATERAL BREAST MR WITHOUT AND WITH CONTRAST REASON FOR EXAM: Female, 37 years old. Family history of breast cancer in aunt and grandmother. TECHNIQUE: Multi-sequence multi-echo imaging of both breasts was performed with a dedicated breast coil. T1-weighted and T2-weighted images were performed before the administration of contrast. T1-weighted images were also performed after the intravenous administration of 11ML of CLARISCAN contrast. COMPARISON: Left breast ultrasound dated September 03, 2021. Bilateral mammogram dated September 03, 2021. FINDINGS: RIGHT BREAST: Dense fibroglandular tissue with moderate to marked background enhancement. No abnormal enhancing masses or areas of non-mass enhancement in the right breast. LEFT BREAST: Dense fibroglandular tissue with moderate to marked background enhancement. No abnormal enhancing masses or areas of non-mass enhancement in the left breast. No enlarged or abnormal lymph nodes. No abnormality in the visualized regions of the chest or liver. MRI/Breast Bilateral W/O and W IMPRESSION: Dense fibroglandular tissue with moderate to marked background enhancement bilaterally. No focal enhancing masses or other suspicious lesions. Yearly follow-up mammogram recommended. CATEGORY: BIRADS Category 2: Benign. A letter regarding these results will be sent to the patient by the facility within 30 days. Electronically Signed: Helder , at 10:45 EST ,
== END | disposition home or self-care (01) ==
LOC: MRI 09:03
PROVIDERS: PCP Internal Medicine; Visit Provider Internal Medicine
DX: R92.2 Inconclusive mammogram (principal); Z80.3 Family history of malignant neoplasm of breast
CPT/HCPCS: 77049; A9575; A4216; C8908

== ENCOUNTER 2022-05-21 09:43 | Outpatient (REF) | payer SELFPAY ==
[2022-05-21 09:44] VITALS: BP 128/97; PULSE 70; RESP 14; TEMP 36.6; O2SAT 99; BMI 24.5
[2022-05-21] MEDS: Diphth,Pertuss(Acell),Tet Vac 0.5 ML Vial IM (10:47)
[2022-05-21 12:22] LABS: HIV - WCH Non-Reactive (Nonreactive); Hepatitis B Surface Antibody Reactive; Hepatitis B Surface Antigen Non-Reactive (Nonreactive); Hepatitis C Antibody Non-Reactive (Nonreactive)
--- NOTE | 2022-05-21 12:53 | EDS_ITS ---
HPI History of Present Illness Chief Complaint: Occup Expose Narrative Narrative: 37-year-old female presenting for left index finger abrasion. She states she was inadvertently poked with a surgical scalpel. She was opening a new kit which was supposed to be clean however the scalpel was old and ghazal. It is unclear if it was cleaned. Last tetanus unknown. [facility] PFS Medical History Colitis COVID-19 Encounter for preventative adult health care examination Home Medications NK 11/05/20 [History Last Taken Unknown] Allergy/AdvReac Type Severity Reaction Status Date / Time chlorhexidine Allergy Hives Verified 05/21/22 09:47 Family History Father CVA (cerebral vascular accident) Hypertension Grandmother , maternal Breast cancer 31 Grandfather , maternal CVA (cerebral vascular accident) Sister Thyroid disorder Mother Hypertension Aunt Breast cancer 41 Surgical History History of D&C History of endometrial ablation History of tubal ligation Hx of section [place] teeth extracted Social History household members: children current occupational status: employed current occupation: [employer], [employer] Smoking Status: Former smoker quit date: 04/05/01 Tobacco: How many years used: 7 Electronic Cigarette Use: not used how long ago did patient quit smokin years alcohol intake: never substance use type: does not use what type of physical activity do you participate in: weight training frequency: 5-6 times per week duration: 45-60 minutes/day do you feel safe at home: Yes ROS ROS ED Constitutional Constitutional ED: Denies chills, fever(s) or sweats Eyes Eyes: Denies blurry vision or change in vision ENT ENT ED: Denies ear pain or sore throat Cardiovascular Cardiovascular: Denies chest pain, palpitations or racing heartbeat Respiratory/Chest Respiratory/Chest: Denies cough, dyspnea or sputum Gastrointestinal Gastrointestinal: Denies abdominal pain, constipation, diarrhea, nausea or vomiting Genitourinary Genitourinary ED: Denies dysuria, hematuria or urinary frequency Musculoskeletal Musculoskeletal: Denies arthralgias, myalgias or neck pain Integumentary Reports other Details: Superficial abrasion ; Denies abscess or Abrasions Neurologic Neurologic: Denies headache(s), paresthesias or weakness Psychiatric Psychiatric: Denies anxiety, depression, suicidal ideation or suicidal thoughts Endocrine Endocrinology: Denies polydipsia or polyuria EXAM Physical Exam Const Vital Signs: 05/21/22 09:44 Temperature 97.9 F Temperature Source Temporal Pulse Rate 70 Respiratory Rate 14 Blood Pressure 128/97 H Blood Pressure Mean 107 Pulse Ox 99 Oxygen Delivery Method Room Air Positive well nourished General Appearance ED: NAD HEENT Reports moist mucous membranes normocephalic Cardio regular rate and regular rhythm Neuro oriented x3, CN's II-XII intact bilaterally and moves all extremities Sensorium / Orientation: alert Motor Exam: strength 5/5 throughout Psych mental status grossly normal Skin Skin Narrative: Superficial abrasion to left index MDM MDM MDM Narrative Medical decision making narrative: 37-year-old female with occupational exposure. There is a superficial abrasion wound was cleaned and dressed. Protocol labs ordered. Patient discharged in stable condition. Lab Data Attestation: I reviewed the patient's lab results. Labs: Laboratory Results - last 24 hr 05/21/22 10:55 Hep Bs Antigen Non-Reactive Hep Bs Antibody Reactive Hepatitis C Antibody Non-Reactive HIV 1&2 Antibody Non-Reactive Discharge Plan Triage Chief Complaint: Occup Expose ED Provider: Ken Sandy Dx/Rx/DC Orders Instructions: ED NEEDLE STICK Health Care Worker Prescriptions: No Action NK Primary Care Provider: Franci Douglas Referrals: Franci Douglas MD [Primary Care Provider] - Disposition Disposition: Home, Self Care Discharge Date/Time: 05/21/22 11:06
== END 2022-05-21 11:06 | disposition home or self-care (01) ==
LOC: ED 09:43
PROVIDERS: PCP Internal Medicine; Visit Provider Student in an Organized Health Care Education/Training Program
DX: L76.11 Accidental puncture and laceration of skin and subcutaneous tissue during a dermatologic procedure (principal); Y92.234 Operating room of hospital as the place of occurrence of the external cause; Z87.891 Personal history of nicotine dependence
CPT/HCPCS: 36415; 86703; 86706; 86803; 87340; 90715

== ENCOUNTER → 2022-06-10 | Outpatient (CLI) | payer OTHER, SELFPAY ==
[2022-06-10 10:39] LABS: T4 Free Direct 1.29 ng/dL (0.76-1.46)
[2022-06-10 10:57] LABS: NATERA MAILED SPECIMEN
== END | disposition home or self-care (01) ==
LOC: PAVLAB 09:33
PROVIDERS: PCP Internal Medicine; Referring Provider Obstetrics & Gynecology; Visit Provider Obstetrics & Gynecology
DX: R53.83 Other fatigue (principal)
CPT/HCPCS: 84439; 84443

== ENCOUNTER → 2022-09-30 | Outpatient (CLI) | payer OTHER, SELFPAY ==
--- NOTE | 2022-09-30 14:22 | BI_ITS ---
MAMMOGRAPHY - BILATERAL SCREENING REASON FOR EXAM: Female, 37 years old. Routine annual screening examination. PERTINENT HISTORY: Grandmother with breast cancer. Grandmother with breast cancer. TECHNIQUE: Digital bilateral breast mp (3D mammographic acquisition) in the CC and MLO projections. 2-D mediolateral oblique (MLO) and craniocaudad (CC) views of both breasts were obtained. CAD: Full Field Digital Mammography with Computer Added Detection was performed. COMPARISON: Comparison is made with prior study dated September 03, 2021 and September 05, 2020. FINDINGS: Breast Composition: The breasts are heterogeneously dense, which may obscure small masses. There are no dominant masses or suspicious calcifications. No other significant abnormalities are identified. There has been no significant change since the prior study. BI/SCRN MAMM (CAD)W/MP BILAT IMPRESSION: Stable bilateral screening mammogram. Yearly follow-up mammogram recommended. (A) ASSESSMENT CATEGORY: BIRADS Category 1: Negative. A letter regarding these results will be sent to the patient by the facility within 30 days. Approximately 10% of breast cancers are not detected by mammography. A normal mammogram should not delay biopsy of a clinically suspicious abnormality. [id number] Electronically Signed: Jase Gleason MD at 15:31 EDT ,
--- NOTE | 2022-09-30 15:21 | US_ITS ---
STUDY: ULTRASOUND BREAST - RIGHT REASON FOR EXAM: Female, 37 years old. Abnormal screening mammogram. TECHNIQUE: Axial and longitudinal images of the RIGHT breast were performed with a high resolution ultrasound transducer. # OF IMAGES: 36 COMPARISON: Comparison is made with prior mammogram done earlier in the day. FINDINGS: RIGHT Breast: The upper outer quadrant of the right breast was examined with ultrasound. No sonographic abnormality is seen. US/Breast Limited Unilateral IMPRESSION: No sonographic abnormality is seen. ASSESSMENT CATEGORY: BIRADS Category 1: Negative. A letter regarding these results will be sent to the patient by the facility within 30 days. Electronically Signed: Jase Gleason MD at 15:40 EDT ,
== END | disposition home or self-care (01) ==
PROVIDERS: PCP Internal Medicine; Visit Provider Obstetrics & Gynecology
DX: Z12.31 Encounter for screening mammogram for malignant neoplasm of breast (principal); R92.8 Other abnormal and inconclusive findings on diagnostic imaging of breast
CPT/HCPCS: 76642; 77063; 77067

== ENCOUNTER → 2022-10-26 | Outpatient (CLI) | payer OTHER, SELFPAY ==
--- NOTE | 2022-10-26 14:41 | MRI_ITS ---
EXAM: MR HEAD WITHOUT AND WITH INTRAVENOUS CONTRAST CLINICAL INDICATION: Increasing frequency of headaches. H/O MIGRAINES, R PERIPHERAL [place]AR[place]ST TECHNIQUE: Multiplanar and multisequence MR images of the brain were obtained without and with intravenous contrast. CONTRAST: 10 mL of IV Clariscan. COMPARISON: No relevant prior studies available. FINDINGS: BRAIN AND EXTRA-AXIAL SPACES: Following IV contrast administration, there are no abnormal enhancing lesions intra-axially and extra-axially. No intra- or extra-axial hemorrhage. No evidence of acute infarct. No intracranial mass or mass effect. There is preservation of the rosas/white matter interface. Posterior fossa structures are unremarkable. Ventricles are appropriate for age. No hydrocephalus. Basal cisterns are patent. No focal signal abnormalities throughout the brain parenchyma in all pulse sequences. SELLA: Unremarkable. Normal sella turcica, pituitary gland, infundibular stalk, optic chiasm and hypothalamus. AUDITORY SYSTEM: Unremarkable. The internal auditory canals are patent. BONES/JOINTS: Unremarkable. No discrete lytic or blastic abnormalities. SINUSES: Unremarkable as visualized. Clear. MASTOID AIR CELLS: Unremarkable as visualized. Clear. ORBITS: Unremarkable as visualized. Both globes, extraocular muscles, optic nerves and retrobulbar fat appear unremarkable. VASCULATURE: Unremarkable as visualized. Normal flow voids in the major intracranial circulation. MRI/Brain W/WO Contrast IMPRESSION: Normal MRI of the brain with and without contrast. Electronically Signed: Neftali Rosenberg MD at 12:10 EDT ,
== END | disposition home or self-care (01) ==
PROVIDERS: PCP Internal Medicine; Referring Provider Internal Medicine; Visit Provider Internal Medicine
DX: G43.109 Migraine with aura, not intractable, without status migrainosus (principal)
CPT/HCPCS: 70553; A9575

== ENCOUNTER → 2023-02-01 | Outpatient (CLI) | payer OTHER, SELFPAY ==
[2023-02-04 08:11] LABS: Chlamydia By Nucleic Acid AMP Negative (Negative); Gonococcus By Nucleic Acid AMP Negative (Negative)
[2023-02-08 07:07] LABS: HPV APTIMA, High Risk Negative (Negative)
== END | disposition home or self-care (01) ==
PROVIDERS: PCP Internal Medicine; Referring Provider Obstetrics & Gynecology; Visit Provider Obstetrics & Gynecology
DX: Z11.3 Encounter for screening for infections with a predominantly sexual mode of transmission (principal); Z12.4 Encounter for screening for malignant neoplasm of cervix
CPT/HCPCS: 87491; 87591; 87624; 88175; G0145

== ENCOUNTER → 2023-03-22 | Outpatient (CLI) | payer OTHER, SELFPAY ==
--- NOTE | 2023-03-22 07:51 | MRI_ITS ---
STUDY: BILATERAL BREAST MR WITHOUT AND WITH CONTRAST REASON FOR EXAM: Female, 37 years old. Family history of breast cancer. TECHNIQUE: Multi-sequence multi-echo imaging of both breasts was performed with a dedicated breast coil. T1-weighted and T2-weighted images were performed before the administration of contrast. T1-weighted images were also performed after the intravenous administration of 10 cc of Clariscan contrast. COMPARISON: Prior breast MRI dated March 30, 2022 and right breast ultrasound September 30, 2022. FINDINGS: RIGHT BREAST: Scattered fibroglandular densities with mild background enhancement. No abnormal enhancing masses or areas of non-mass enhancement in the right breast. LEFT BREAST: Scattered fibroglandular densities with moderate background enhancement. No abnormal enhancing masses or areas of non-mass enhancement in the left breast. No enlarged or abnormal lymph nodes. No abnormality in the visualized regions of the chest or liver. MRI/Breast Bilateral W/O and W IMPRESSION: Stable breast MRI with contrast with no abnormality. Alternating bilateral mammogram with bilateral breast MRI with contrast, given the patient''s history, would be appropriate. CATEGORY: BIRADS Category 2: Benign. A letter regarding these results will be sent to the patient by the facility within 30 days. Electronically Signed: Helder Cheatham MD at 13:20 EST ,
== END | disposition home or self-care (01) ==
LOC: MRI 07:49
PROVIDERS: PCP Internal Medicine; Referring Provider Obstetrics & Gynecology; Visit Provider Obstetrics & Gynecology
DX: R92.30 Dense breasts, unspecified (principal); Z80.3 Family history of malignant neoplasm of breast
CPT/HCPCS: 77049; A9575; A4216; C8908

== ENCOUNTER → 2023-06-28 | Outpatient (CLI) | payer OTHER, SELFPAY ==
[2023-06-28 11:23] LABS: Absolute Neutrophil Count 4.9 X10^3/uL (2.0-7.7); Basophil# 0.07 X10^3/uL; Basophil% 0.9 % (0-1); Eosinophil# 0.12 X10^3/uL; Eosinophils% 1.5 % (0-5); Hematocrit 42.3 % (37-47); Hemoglobin 13.8 g/dL (12.0-15.0); Lymphocyte % 29.7 % (19-41); Mean Corp Hgb Conc 32.6 g/dL (32-36); Mean Corpuscular Hgb 29.3 pg (27.0-32.0); Mean Corpuscular Volume 89.8 fL (81-99); Mean Platelet Vol. 10.4 fl (6.2-12.0); Monocyte# 0.63 X10^3/uL; Monocyte% 7.8 % (0-10); NRBC Flagged by Analyzer 0 % (0-5); Neutrophil # 4.85 X10^3/uL (2.7-7.7); Neutrophil % 59.9 % (47-70); Platelet Count 259 K/mm3 (150-450); RBC Distribution Width CV 11.9 % (11.6-14.6); RBC Distribution Width SD 39.5 fl (35.1-43.9); Red Blood Count 4.71 M/mm3 (4.2-5.4); White Blood Count 8.1 K/mm3 (4.4-11.0)
[2023-06-28 12:02] LABS: ALB/GLOB Ratio 1.5 RATIO (0.9-2.4); AST(SGOT) 18 U/L (15-37); Alanine Aminotransfer ALT/SGPT 20 U/L (13-56); Albumin, Serum 4.1 g/dL (3.2-5.0); Alkaline Phosphatase 62 U/L (45-117); Anion Gap 4 (5-15); BUN 14 mg/dL (7-18); BUN/Creat Ratio 14.6 RATIO (10-20); Calcium,Total 9.1 mg/dL (8.5-10.1); Chloride 109 mmol/L (98-107); Creatinine, Serum 0.96 mg/dL (0.55-1.02); EST Glomerular Filtration Rate 68 mL/min (>60); Est Glom Filt Rate - Afr Amer 83 mL/min (>60); Globulin 2.8 g/dL (2.2-4.2); Glucose 98 mg/dL (74-106); Potassium 3.7 mmol/L (3.5-5.1); Protein, Total 6.9 g/dL (6.4-8.2); Sodium Level 138 mmol/L (136-145)
== END | disposition home or self-care (01) ==
PROVIDERS: PCP Internal Medicine; Referring Provider Internal Medicine; Visit Provider Internal Medicine
DX: G43.109 Migraine with aura, not intractable, without status migrainosus (principal)
CPT/HCPCS: 36415; 80053; 85025

== ENCOUNTER → 2023-11-03 | Outpatient (CLI) | payer OTHER, SELFPAY ==
--- NOTE | 2023-11-03 08:00 | BI_ITS ---
MAMMOGRAPHY - BILATERAL SCREENING REASON FOR EXAM: Female, 38 years old. Routine annual screening examination. PERTINENT HISTORY: Grandmother with breast cancer. Aunt with breast cancer. TECHNIQUE: Digital bilateral breast mp (3D mammographic acquisition) in the CC and MLO projections. 2-D mediolateral oblique (MLO) and craniocaudad (CC) views of both breasts were obtained. CAD: Full Field Digital Mammography with Computer Added Detection was performed. COMPARISON: Comparison is made with prior study September 22, 2022 and September 03, 2021. FINDINGS: Breast Composition: The breasts are heterogeneously dense, which may obscure small masses. There are no dominant masses or suspicious calcifications. No other significant abnormalities are identified. There has been no significant change since the prior study. BI/SCRN MAMM (CAD)W/MP BILAT IMPRESSION: Stable bilateral screening mammogram. Yearly follow-up mammogram recommended. (A) ASSESSMENT CATEGORY: BIRADS Category 1: Negative. A letter regarding these results will be sent to the patient by the facility within 30 days. Approximately 10% of breast cancers are not detected by mammography. A normal mammogram should not delay biopsy of a clinically suspicious abnormality. [id number] Electronically Signed: Jase Gleason MD at 8:47 EDT ,
== END | disposition home or self-care (01) ==
LOC: OPBI 07:52
PROVIDERS: PCP Internal Medicine; Referring Provider Obstetrics & Gynecology; Visit Provider Obstetrics & Gynecology
DX: Z12.31 Encounter for screening mammogram for malignant neoplasm of breast (principal)
CPT/HCPCS: 77063; 77067

== ENCOUNTER → 2024-06-20 | Outpatient (CLI) | payer OTHER, SELFPAY ==
[2024-06-20 19:20] LABS: Ferritin 87 ng/mL (22-378); Vitamin B12 687 pg/mL (180-914); Vitamin D,25 Hydroxy 26.4 ng/mL (30-100)
[2024-06-24 01:06] LABS: Zinc, Plasma or Serum 67 ug/dL (44-115)
== END | disposition home or self-care (01) ==
LOC: MTLAB 14:53
PROVIDERS: PCP Internal Medicine; Referring Provider Physician Assistant Medical; Visit Provider Physician Assistant Medical
DX: L64.8 Other androgenic alopecia (principal)
CPT/HCPCS: 36415; 82306; 82607; 82728; 84630

== ENCOUNTER → 2024-10-26 | Outpatient (CLI) | payer OTHER, SELFPAY ==
[2024-10-26 17:21] LABS: Vitamin D,25 Hydroxy 45.2 ng/mL (30-100)
== END | disposition home or self-care (01) ==
PROVIDERS: PCP Internal Medicine; Visit Provider Nurse Practitioner Family
DX: E55.9 Vitamin D deficiency, unspecified (principal)
CPT/HCPCS: 36415; 82306

== ENCOUNTER → 2024-12-19 | Outpatient (CLI) | payer OTHER, SELFPAY ==
--- NOTE | 2024-12-19 14:15 | BI_ITS ---
EXAM: SCRN MAMM (CAD)W/MP BILAT DATE: 12/19/2024 CLINICAL HISTORY: F, Age 39 y/o , SCREEN FOR BREAST CANCER Grandmother with breast cancer. Aunt with breast cancer. TECHNIQUE: Procedure Code: [id number] Modality: MG Procedure: SCRN MAMM (CAD)W/MP BILAT COMPARISON: Prior exam(s) dated November 03, 2023.. FINDINGS: TISSUE DENSITY: The breasts are heterogeneously dense, which may obscure small masses. Bilateral Breast Mammographic Findings: No significant masses, calcifications or other abnormalities are identified. No suspicious masses, areas of developing architectural distortion, or suspicious calcifications. There has been no significant interval change. BI/SCRN MAMM (CAD)W/MP BILAT IMPRESSION: Stable bilateral screening mammogram. OVERALL FINAL ASSESSMENT BI-RADS 1: NEGATIVE. RECOMMENDATION: Routine annual follow-up in 1 Year A letter with findings and recommendations will be mailed to the patient. Reading Location: [place] [id number]
== END | disposition home or self-care (01) ==
LOC: OPBI 14:19
PROVIDERS: PCP Internal Medicine; Referring Provider Nurse Practitioner Family; Visit Provider Nurse Practitioner Family
DX: Z12.31 Encounter for screening mammogram for malignant neoplasm of breast (principal)
CPT/HCPCS: 77063; 77067